=== PATIENT | female | born 1990 | race Caucasian/White ===

== ENCOUNTER 2019-12-10 17:00 | Emergency (ER) | payer BC, OTHER ==
--- NOTE | 2019-12-10 17:18 | EDM.PDOC ---
ED HPI GENERAL MEDICAL PROBLEM - General Chief Complaint: Lower Extremity Injury/Pain Stated Complaint: KNEE INJURY Time Seen by Provider: 12/10/19 17:01 Source of Information: Reports: Patient History Limitations: Reports: No Limitations - History of Present Illness INITIAL COMMENTS - FREE TEXT/NARRATIVE: HISTORY AND PHYSICAL: History of present illness: Patient is a 29-year-old female who presents to the emergency room with complaints of left knee and foot pain. She reports that she slipped and fell resulting in her landing on her left knee. She was unable to get up off of the ground and stated she laid outside for approximately 20 minutes until someone was able to carry her to the vehicle. She was unable to walk into the emergency room due to the left lower extremity discomfort. She denies hitting her head or having any loss of consciousness. Review of systems: As per history of present illness and below otherwise all systems reviewed and negative. Past medical history: As per history of present illness and as reviewed below otherwise noncontributory. Surgical history: As per history of present illness and as reviewed below otherwise noncontributory. Social history: See social history for further information Family history: As per history of present illness and as reviewed below otherwise noncontributory. Physical exam: General: Well-developed and well-nourished 29-year-old female. Alert and oriented. Tearful and anxious appearing. Nontoxic-appearing and in no acute distress. VSS. HEENT: Atraumatic, normocephalic, pupils equal and reactive bilaterally, negative for conjunctival pallor or scleral icterus, mucous membranes moist, TMs normal bilaterally, throat clear, neck supple, nontender, trachea midline. No drooling or trismus noted. No meningeal signs. No hot potato voice noted. Lungs: Clear to auscultation, breath sounds equal bilaterally, chest nontender. Heart: S1S2, regular rate and rhythm without overt murmur Abdomen: Soft, nondistended, nontender. Pelvis stable and nontender. Skin: Intact, warm, dry. No lesions or rashes noted. C-spine/Back: No pinpoint vertebral tenderness upon palpation. No crepitus, step -offs or obvious deformities. Denies any urinary or fecal incontinence. Denies any numbness, tingling or saddle paresthesia. Extremities: Limited flexion and extension of the knee due to pain. Pain with palpation of the patella and proximal tib-fib. Pain with palpation to anterior mid foot. Good flexion and extension of the ankle. Strong pedal pulses bilat. Cap refill less than 3 seconds. Otherwise moves all other extremities per self without difficulty or deficits, negative for cords or calf pain. Neurovascular unremarkable. Neuro: Awake, alert, oriented. Cranial nerves II through XII unremarkable. Cerebellum unremarkable. Motor and sensory unremarkable throughout. Exam nonfocal. Notes: X-ray show no acute findings. Did discuss with patient diagnostic results and that she may need further imaging if she continues to have pain. Will place her in a knee immobilizer and fit for crutches for non-weightbearing and comfort. Would like her to use these for the next 2 to 3 days. If she continues to have pain she can continue using them until she follows up with the orthopedic provider. Supportive care measures were reviewed and discussed. Voices understanding and is agreeable to plan of care. Denies any further questions or concerns at this time. Diagnostics: Xray left knee, tib/fib, foot Therapeutics: Morphine, Zofran Prescription: Tramadol (#15) Impression: Left knee sprain Left foot injury Plan: 1. Rest, ice, elevate the affected extremity. Please wear the knee immobilizer and crutches as directed. 2. Tylenol and/or Ibuprofen as needed for pain management. Tramadol for moderate to severe pain. May cause drowsiness, so do not take while driving. 3. Follow up with the Orthopedic provider as we discussed. Return to the ED as needed and as discussed. Definitive disposition and diagnosis as appropriate pending reevaluation and review of above. 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 Musculoskeletal History: Reports: None Neurological History: Reports: None Psychiatric History: Reports: Depression Endocrine/Metabolic History: Reports: None Hematologic History: Reports: None Immunologic History: Reports: None Oncologic (Cancer) History: Reports: None Dermatologic History: Reports: None - Infectious Disease History Infectious Disease History: Reports: None - Past Surgical History Head Surgeries/Procedures: Reports: None Social & Family History - Family History Family Medical History: Noncontributory - Caffeine Use Caffeine Use: Reports: Tea Review of Systems - Review of Systems Review Of Systems: Comprehensive ROS is negative, except as noted in HPI. ED EXAM, GENERAL - Physical Exam Exam: See Below (See dictation) Course - Vital Signs Last Recorded V/S: Last Vital Signs Temp 98.1 F 12/10/19 17:18 Pulse 103 H 12/10/19 17:18 Resp 26 H 12/10/19 17:18 BP 107/69 12/10/19 17:18 Pulse Ox 98 12/10/19 17:18 - Orders/Labs/Meds Orders: Active Orders 24 hr Category Date Time Status DME for Discharge [COMM] Stat Oth 12/10/19 18:29 Ordered Meds: Medications Discontinued Medications Generic Name Dose Route Start Last Admin Trade Name Veronique PRN Reason Stop Dose Admin Morphine Sulfate 2 mg 12/10/19 17:23 12/10/19 17:32 Morphine IVPUSH 12/10/19 17:24 2 mg ONETIME ONE Administration Ondansetron HCl 4 mg 12/10/19 17:23 12/10/19 17:31 Zofran IVPUSH 12/10/19 17:24 4 mg ONETIME ONE Administration Departure - Departure Time of Disposition: 18:30 Disposition: Home, Self-Care 01 Clinical Impression: Left knee sprain Qualifiers: Encounter type: initial encounter Involved ligament of knee: unspecified ligament Qualified Code(s): S83.92XA - Sprain of unspecified site of left knee, initial encounter Injury of left foot Qualifiers: Encounter type: initial encounter Qualified Code(s): S99.922A - Unspecified injury of left foot, initial encounter - Discharge Information Instructions: Knee Sprain, Adult, [id number] Referrals: PCP,None [Primary Care Provider] - Forms: ED Department Discharge Additional Instructions: The following information is given to patients seen in the emergency department who are being discharged to home. This information is to outline your options for follow-up care. We provide all patients seen in our emergency department with a follow-up referral. The need for follow-up, as well as the timing and circumstances, are variable depending upon the specifics of your emergency department visit. If you don't have a primary care physician on staff, we will provide you with a referral. We always advise you to contact your personal physician following an emergency department visit to inform them of the circumstance of the visit and for follow-up with them and/or the need for any referrals to a consulting specialist. The emergency department will also refer you to a specialist when appropriate. This referral assures that you have the opportunity for follow-up care with a specialist. All of these measure are taken in an effort to provide you with optimal care, which includes your follow-up. Under all circumstances we always encourage you to contact your private physician who remains a resource for coordinating your care. When calling for follow-up care, please make the office aware that this follow-up is from your recent emergency room visit. If for any reason you are refused follow-up, please contact the [facility] Emergency Department at and asked to speak to the emergency department charge nurse. [facility] [address] [place] [address], [address] [place] [address] [address] [place]k, Orthopedist [facility] [address] [place] [address] Orthoped[facility] at [facility] [address] [place] [address] [facility] [address] [place], [place] [id number] 1. Rest, ice, elevate the affected extremity. Please wear the knee immobilizer and crutches as directed. Nonweightbearing x 2-3 days. 2. Tylenol and/or Ibuprofen as needed for pain management. Tramadol for moderate to severe pain. May cause drowsiness, so do not take while driving. 3. Follow up with the Orthopedic provider as we discussed. Return to the ED as needed and as discussed. Sepsis Event Note - Focused Exam Vital Signs: Vital Signs Temp Pulse Resp BP Pulse Ox 12/10/19 17:18 98.1 F 103 H 26 H 107/69 98 Date Exam was Performed: 12/10/19 Time Exam was Performed: 18:37 - My Orders Last 24 Hours: My Active Orders 12/10/19 18:29 DME for Discharge [COMM] Stat - Assessment/Plan Last 24 Hours: My Active Orders 12/10/19 18:29 DME for Discharge [COMM] Stat
[2019-12-10] MEDS ORDERED: Ondansetron 4 MG/2 ML SDV IVPUSH ONE (17:23)
[2019-12-10] MEDS ORDERED: Morphine 2 MG/ML Syringe IVPUSH ONE (17:23)
--- NOTE | 2019-12-10 18:25 | CR ---
Left tibia and fibula: AP and lateral views of the left tibia and fibula were obtained. No fracture or other bony abnormality is identified. Impression: 1. No abnormality is identified on 2 view left tibia and fibula exam. Diagnostic code #1 Study was dictated in MDT
--- NOTE | 2019-12-10 18:25 | CR ---
Left foot: 2 views left foot were obtained. Comparison: No previous left foot exam. No fracture or other bony abnormality is appreciated. Impression: 1. No acute abnormality is appreciated on 2 view left foot exam. Diagnostic code #1 Study was dictated in MDT
--- NOTE | 2019-12-10 18:25 | CR ---
Left knee: 4 views left knee were obtained. Comparison: No prior knee study. Mild lateral joint space narrowing is seen. Medial joint space is preserved. Patellofemoral joint appears unremarkable. No joint effusion is seen. No acute fracture or other abnormality is appreciated. Impression: 1. Mild lateral joint space narrowing. 2. Left knee study is otherwise unremarkable. Diagnostic code #2 Study was dictated in MDT
== END 2019-12-10 18:59 | disposition home or self-care (01) ==
LOC: MW.ED 17:00
DX: S83.92XA Sprain of unspecified site of left knee, initial encounter (principal); S99.922A Unspecified injury of left foot, initial encounter; Z88.0 Allergy status to penicillin; Z91.018 Allergy to other foods; Z91.030 Bee allergy status; F32.9 Major depressive disorder, single episode, unspecified; Z79.899 Other long term (current) drug therapy; W01.0XXA Fall on same level from slipping, tripping and stumbling without subsequent striking against object, initial encounter
CPT/HCPCS: 73562; 73590; 73620; 96374; 96375; 99283; J2270; J2405